=== PATIENT | female | born 1995 | race Hispanic/Latino ===

== ENCOUNTER 2017-05-22 11:58 | Inpatient (IN) | payer BC ==
[2017-05-22 13:48] LABS: Bilirubin Large (Negative); Blood, Urine Negative (Negative); Clarity CLOUDY (Clear); Glucose, Urine (Dipstick) Negative (Negative); Leukocyte Small (Negative); Nitrite Positive (Negative); Protein, Urine (Dipstick) Negative (Neg-Trace); Specific Gravity, Urine 1.017 (1.002-1.036); pH, Urine 5.5 (5.0-9.0)
[2017-05-22 13:50] LABS: #Lymphocytes 1.3 thou/uL (1.20-3.40); #Monocytes 0.7 thou/uL (0.11-0.59); #Neutrophils 9.6 thou/uL (1.40-6.50); %Basophils 0.3 % (0.0-1.0); %Eosinophils 0.3 % (0.0-10.0); %Lymphocytes 11.1 % (21.0-51.0); %Monocytes 5.6 % (0.0-10.0); %Neutrophils 82.7 % (42.0-75.0); Hemoglobin 12.7 g/dL (12.0-16.0); Mean Corpuscular HGB CONC 31.6 g/dL (32.0-36.0); Mean Corpuscular Hemoglobin 27.5 pg (27.0-31.0); Mean Platelet Volume 6.8 fL (7.4-10.4); Platelet Count 494 thou/uL (130-400); RBC Distribution Width 12.9 % (11.5-14.5); Red Blood Cell (RBC) Count 4.61 mill/uL (4.20-5.40); White Blood Cell (WBC) Count 11.6 thou/uL (4.8-10.8)
[2017-05-22 13:51] LABS: Bacteria/HPF Rare-Few HPF (None Seen); Hyaline Casts/LPF 0-3 HYALINE CAST LPF (0-3 Hyaline); Squamous Epithelial 0-3 HPF (0-3); WBC/HPF None Seen HPF (0-3)
[2017-05-22 13:56] LABS: Yeast-AUWi Flag 62.3 (0-25.0)
[2017-05-22 14:05] LABS: RBC/HPF 0-3 HPF (0-3); Renal Epithelial None Seen HPF (0-3); Transitional Epithelial NONE SEEN HPF (0-3); Yeast-All Forms None Seen HPF (None Seen)
[2017-05-22 14:12] LABS: ALT (SGPT) 1080 U/L (8-55); AST (SGOT) 1054 U/L (5-34); Albumin 4.3 g/dL (3.5-5.0); Alkaline Phosphatase 238 U/L (40-150); Anion Gap 13 mmol/L (10-20); BUN (Urea Nitrogen) 7 mg/dL (7.0-18.7); Bilirubin, Total 4.9 mg/dL (0.2-1.2); Calc. Creatinine Clearance 0 mL/min (70-130); Calcium 10.3 mg/dL (7.8-10.44); Carbon Dioxide 27 mmol/L (22-29); Chloride 101 mmol/L (98-107); Estimated GFR-MDRD Greater than 90; Globulin 4.4 g/dL (2.4-3.5); Glucose 122 mg/dL (70-105); Potassium 4.3 mmol/L (3.5-5.1); Protein, Total 8.7 g/dL (6.0-8.3); Sodium 137 mmol/L (136-145)
--- NOTE | 2017-05-22 14:57 | ULT ---
RIGHT UPPER QUADRANT ABDOMINAL ULTRASOUND: COMPARISON: None. HISTORY: Abdominal pain in the right upper quadrant. TECHNIQUE: Multiplanar, dai scale, and color Doppler images were obtained in a right upper quadrant abdominal u ltrasound. FINDINGS: The liver demonstrates increased echogenicity without focal lesions or intrahepatic ductal dilatation . The gallbladder contains shadowing stones and sludge without gallbladder wall thickening or perich olecystic fluid. The common bile duct is enlarged measuring 9 mm. The pancreas could not be visualized. The right kidney is normal in echogenicity without hydronephro sis or calculus and measures 11.6 cm in length. IMPRESSION: 1. Fatty liver. 2. Cholelithiasis. 3. Enlargement of the common bile duct. This could be a secondary sign of choledocholithiasis. POS: [facility]
[2017-05-22] MEDS ORDERED: Piperacillin/Tazobactam 3.375 GM in Sodium Chloride 0.9% 100 ML IVPB SCH (15:00)
[2017-05-22] MEDS ORDERED: Fentanyl 100 MCG/2 ML VIAL ONE (15:04)
[2017-05-22 15:06] LABS: Pregnancy Test - Urine (BHCG) Negative (Negative); Pregu Control Background? CLEAR/WHITE (CLR/WHITE); Pregu Control Bar Appear? YES (CONTROL BAR); Specific Gravity 1.018 (1.002-1.036)
[2017-05-22] MEDS ORDERED: Ondansetron HCl/PF 4 MG/2 ML Vial IVP PRN (15:07)
[2017-05-22] MEDS ORDERED: Fentanyl 100 MCG/2 ML VIAL SLOW IVP PRN (15:09)
[2017-05-22 15:43] LABS: INR-International Normal Ratio 1.1; Prothrombin Time 14.6 SEC (12.0-14.7)
[2017-05-22 16:34] VITALS: BMI 38.7
[2017-05-22] MEDS: Sodium Chloride 0.9% 1,000 ML IV SCH (16:53)
--- NOTE | 2017-05-22 16:53 | HP ---
PRIMARY CARE PROVIDER: LARISSA Rubalcava II, LAISHA Smith CHIEF COMPLAINT: Abdominal pain. HISTORY OF PRESENT ILLNESS: Ms. Sahu is a pleasant 23-year-old lady who was seen at [facility] on 05/22/2017. Approximately a week ago, she developed right upper quadrant pain. She reports that it lasted 1 day and resolved. About 3 days ago, she had a recurrence of the pain. She describes it as sharp, consta nt, 5/10, worse with lying down on her right side, no known living factors, accompanied by diaphoresi s, but not by fevers or chills, no history of chest pain or shortness of breath. She denies any naus ea, vomiting or diarrhea. She came to the emergency room because of ongoing abdominal pain. REVIEW OF SYSTEMS: The following complete review of systems was negative, unless otherwise mentioned in the HPI or below: Constitutional: Weight loss or gain, ability to conduct usual activities. Skin: Rash, itching. Eyes: Double vision, pain. ENT/Mouth: Nose bleeding, neck stiffness, pain, tenderness. Cardiovascular: Palpitations, dyspnea on exertion, orthopnea. Respiratory: Shortness of breath, wheezing, cough, hemoptysis, fever or night sweats. Gastrointestinal: Poor appetite, abdominal pain, heartburn, nausea, vomiting, constipation, or diarr hea. Genitourinary: Urgency, frequency, dysuria, nocturia. Musculoskeletal: Pain, swelling. Neurologic/Psychiatric: Anxiety, depression. Allergy/Immunologic: Skin rash, bleeding tendency. PAST MEDICAL HISTORY: None. PAST SURGICAL HISTORY: None. PSYCHIATRIC HISTORY: Depression. FAMILY HISTORY: Cholelithiasis in her mother. SOCIAL HISTORY: No history of tobacco use, alcohol use or recreational drug use. ALLERGIES: No known drug allergies. MEDICATION: Fluoxetine 60 mg daily. PHYSICAL EXAMINATION: GENERAL: On examination, Ms. Sahu is awake and alert, not in acute distress. VITAL SIGNS: Blood pressure is 136/91, pulse is 69, she is breathing at rate of 16, and saturating 1 00% on room air. She is afebrile. EYES: Patient has scleral icterus. No conjunctival pallor. ENT: Moist mucosal membranes, no oropharyngeal erythema or exudates. NECK: Supple, nontender, normal range of movement. Trachea is midline. RESPIRATORY: Accessory muscles of breathing are not active. Chest wall movements are symmetric bila terally. LUNGS: Clear to auscultation without wheeze, rhonchi or crepitations. CARDIOVASCULAR: S1 and S2 are heard, regular. LUNGS: Peripheral pulses palpable. No carotid bruit, no pericardial rub. ABDOMEN: Right upper quadrant tenderness present, no guarding or rigidity. Bowel sounds are heard, Cunningham sign is negative. NEUROLOGIC: Cranial nerves II-XII intact. Deep tendon reflexes are 2+. MUSCULOSKELETAL: Power is 5/5 in all 4 extremities. SKIN: No rashes or subcutaneous nodules. LYMPHATIC: No cervical lymphadenopathy. PSYCHIATRIC: Normal mood and normal affect. The patient is oriented to person, place, and time. LABORATORY DATA AND IMAGING DATA: Ms. Sahu's labs and investigations were reviewed. Laboratory in vestigations showed leukocytosis with 11,600 white cells, of which 82.7% are neutrophils, elevated pl atelet count of 494,000, normal hemoglobin, INR 1.1, normal lipase, normal electrolytes, normal creat inine, elevated total bilirubin of 4.9, elevated AST of 1054, elevated ALT of 1080 and elevated alkal ine phosphatase of 238. Urinalysis is positive for trace ketones, nitrite, large amount of bilirubin and small amount of leukocyte esterase. Urine test is negative. Abdominal ultrasound yissel wed fatty liver, cholelithiasis and enlargement of the common bile duct. ASSESSMENT AND PLAN: Ms. Sahu is a pleasant 21-year-old lady who was seen at [facility] on 05/22/2017. Her problem list includes: 1. Abdominal pain: Most likely secondary to choledocholithiasis. She will be admitted to the [facility] for further management, including pain medications. 2. Choledocholithiasis: Gastroenterology Service and General Surgery Service are being consulted. We will cover her with broad spectrum antibiotics for now. We will keep her n.p.o. after midnight an d recheck her liver profile in the morning. 3. Urinary tract infection. We will treat her with antibiotics, await urine cultures. Many thanks for allowing me to participate in your patient's care. Please feel free to contact me wi th any questions or concerns. LEVEL OF RISK: Moderate. LEVEL OF COMPLEXITY: Moderate.
[2017-05-22] MEDS ORDERED: Ketorolac Tromethamine 30 MG/ML VIAL IVP PRN (18:38)
[2017-05-22] MEDS ORDERED: Scopolamine 1.5 mg/72 hour Patch TOP SCH (18:45)
[2017-05-22] MEDS: Acetaminophen 1,000 MG in Premix Bag 1 BAG IVPB SCH (19:51)
--- NOTE | 2017-05-22 20:13 | CON ---
DATE OF CONSULTATION: 05/22/2017 REASON FOR CONSULTATION: Possible choledocholithiasis. HISTORY OF PRESENT ILLNESS: Ms. Sahu is a 21-year-old female who came to emergency room for right upper abdominal pain, which radiated to the epigastrium and chest region. She states this began last night, was quite intense, coming and going, and finally got so intense today she decided to come to the emergency room. Apparently, this happened once last summer when [facility] was told she probably had gallstones. It happened apparently on or few days prior and went away, and then started again yesterday. She notes that she has had some chills and felt swea ts, but has had no fever. Presently, she feels well. She did receive a little bit of pain medicatio n here in the emergency room. She had 50 mg of fentanyl about an hour ago. She notes that she has h ad no vomiting. She feels much better presently. When asked about dark urine, she states she noted this here apparently when she gave her urine sample. Temperature is 98.5, blood pressure 135/95, pul se was 75, respirations 18. Here in the emergency room, she had labs showing white count 11.6, hemog lobin 12.7, platelet count 494. INR was 1.1. Lipase was 24. AST and ALT were 1054 and 1080, alkali ne phosphatase of 238, bilirubin 4.9. Basic metabolic profile was normal. Urinalysis was positive f or nitrites, negative for white blood cells. Ultrasound showed stones in the gallbladder with no per icholecystic fluid or thickened gallbladder. Bile duct was 9 mm. There was fatty liver. PAST MEDICAL HISTORY: She is taking fluoxetine for depression and sees a psychiatrist, has been hany g well with that. PAST SURGICAL HISTORY: Negative. ALLERGIES: None known. SOCIAL HISTORY: Negative for alcohol, drugs, or tobacco. FAMILY HISTORY: Positive for gallstones in her mother. PHYSICAL EXAMINATION: VITAL SIGNS: As per HPI. GENERAL: She is well nourished, well developed. She is alert. She is smiling. She is in no distre ss. HEENT: Oropharynx without lesions. Conjunctivae and sclerae appear clear. I do not appreciate any icterus, however, when in room without any outside light. NECK: Supple. LUNGS: Clear. ABDOMEN: Soft and nontender without any palpable hepatosplenomegaly. There is no rebound or guardin g. There is no right upper quadrant tenderness. There is no palpable hepatosplenomegaly. EXTREMITIES: No clubbing, cyanosis, or edema. NEUROLOGIC: Mental status: She is alert and oriented to person, place, and time. She is appropriat e. LABORATORY DATA: As per HPI. ASSESSMENT: Biliary colic intermittently, at least 3 times since the summer, now with a worst episod e with 9-mm bile duct and elevated liver enzymes, likely she has had some choledocholithiasis. She i s feeling much better now. She may have already passed the stone. She shows no signs of cholangitis with no fever, no tachycardia, no right upper quadrant tenderness at this time. There were no signs of overt severe cholecystitis. She does have mildly elevated white count. RECOMMENDATIONS: 1. IV fluids at 150 mL an hour. 2. Repeat labs in the morning. 3. I did start her empiric antibiotics due to the possibility of choledocholithiasis. 4. Plan for laparoscopic cholecystectomy tomorrow morning with General Surgery. I have already talk ed with Dr. Israel. If her LFTs remain elevated, she will need an ERCP. If her LFTs dropped, she ca n have a laparoscopic cholecystectomy with IOC. If she shows any signs of developing fever, increasi ng pain, tachycardia, or any concerning features for possible cholangitis or pancreatitis, I would re peat her labs immediately today and then proceed to call to ERCP. The risks, benefits, and possible complications of endoscopy including perforation, bleeding, reactions to medication, and aspiration w ere all explained to the patient and her family and they understand these. The reason for not procee ding with ERCP right this second is due to the fact that she may have already passed a stone and that there are risks of ERCP including pancreatitis. They understand the rationale behind this decision and we will continue to monitor. I will be on-call and will be available to see her if her symptoms worsened.
[2017-05-22] MEDS: Piperacillin/Tazobactam 4.5 GM in Sodium Chloride 0.9% 100 ML IVPB SCH (21:25)
--- NOTE | 2017-05-22 22:46 | HP ---
HISTORY OF PRESENT ILLNESS: A 21-year-old female, [employer], has had epigastric right upper quadrant pain intermittently since last year. She had experienced it last summer, resolved, an d then recurred about three weeks ago and recurred last . It has been present since that zeb chau. She presents to the emergency room, has a 9-mm bile duct and gallstones. Her sodium is 137. BUN and creatinine are normal. Glucose 122, bilirubin 4.9, alkaline phosphatase 238. AST and ALT are e levated. She is morbidly obese, 5 feet 6 inches, 240 pounds, BMI 38. She takes fluoxetine at home. The patient was seen in the emergency room. Dr. Morgan saw her. He admitted her to the [facility], who then called Gastroenterology, Dr. Harry; then myself. The patient was admitted to [facility] service on IV antibiotics. The patient is not having much pain currently. ALLERGIES: None. TOBACCO: None. ALCOHOL: Rarely. MEDICATIONS: None. PAST MEDICAL HISTORY: Noncontributory. PAST SURGICAL HISTORY: Noncontributory. REVIEW OF SYSTEMS: Noncontributory. PHYSICAL EXAMINATION: VITAL SIGNS: 5 feet, 6 inches, 240 pounds, BMI 38. Temperature 98.4, pulse 66, blood pressure 146/8 9. LUNGS: Clear to auscultation. CARDIAC: Regular rate and rhythm without murmur or gallop. ABDOMEN: Soft. Mild tenderness in right upper quadrant. EXTREMITIES: Unremarkable. Morbidly obese. ASSESSMENT AND PLAN: 1. Cholecystitis, cholelithiasis, possible choledocholithiasis. The patient has had pain since last . She could have acute cholecystitis that is causing her liver function test elevation, but in the face of a dilated bile duct, one would have to suspect choledocholithiasis. Since she is not having much pain at this time, plan would be to recheck her liver function test tomorrow. I have di scussed with Dr. Harry. If her liver function tests improved, she could undergo laparoscopic cholec ystectomy and cholangiogram and then based on results of cholangiogram, she may need ERCP. If her li dilan function tests are not improved, then ERCP, sphincterotomy, and laparoscopic cholecystectomy unde r the same anesthesia could be performed. Risk of operation including infection, bleeding, visceral or biliary injury, and open procedure were discussed with the patient and questions were answered. 2. Obesity. 3. Depression.
[2017-05-23] MEDS: Sodium Chloride 0.9% 1,000 ML IV SCH ×2 (00:15→11:17)
[2017-05-23] MEDS: Acetaminophen 1,000 MG in Premix Bag 1 BAG IVPB SCH ×2 (02:15→07:26)
[2017-05-23] MEDS: Piperacillin/Tazobactam 4.5 GM in Sodium Chloride 0.9% 100 ML IVPB SCH (05:23)
[2017-05-23 05:41] LABS: ALT (SGPT) 796 U/L (8-55); AST (SGOT) 612 U/L (5-34); Albumin 3.5 g/dL (3.5-5.0); Alkaline Phosphatase 207 U/L (40-150); Anion Gap 10 mmol/L (10-20); BUN (Urea Nitrogen) 6 mg/dL (7.0-18.7); Bilirubin, Total 4.5 mg/dL (0.2-1.2); Calc. Creatinine Clearance 253 mL/min (70-130); Carbon Dioxide 26 mmol/L (22-29); Chloride 104 mmol/L (98-107); Estimated GFR-MDRD Greater than 90; Globulin 3.6 g/dL (2.4-3.5); Glucose 93 mg/dL (70-105); Lipase 18 U/L (8-78); Potassium 3.1 mmol/L (3.5-5.1); Protein, Total 7.1 g/dL (6.0-8.3); Sodium 137 mmol/L (136-145)
[2017-05-23] MEDS ORDERED: Bupivacaine 0.25% HCL 30 ML VIAL ONE (07:49)
[2017-05-23] MEDS ORDERED: Lidocaine 2% w/Epinephrine 1:200K 20 ML VIAL ONE (07:49)
[2017-05-23] MEDS ORDERED: Iothalamate Meglumine 60% 50 ML VIAL FS ONE (07:56)
[2017-05-23] MEDS ORDERED: Indomethacin 50 MG SUPP ONE (08:59)
[2017-05-23] MEDS ORDERED: Midazolam HCl 2 mg/2 ml Vial ONE (09:01)
[2017-05-23] MEDS ORDERED: Ketorolac Tromethamine 30 MG/ML VIAL ONE (09:01)
[2017-05-23] MEDS ORDERED: Fentanyl 100 MCG/2 ML VIAL ONE (09:07)
--- NOTE | 2017-05-23 09:53 | RAD ---
ERCP: HISTORY: Cholelithiasis. Abdominal pain. FINDINGS: Intraoperative fluoroscopy was provided for ERCP as performed by Dr. Harry. Spot fluoroscopic image s show endoscopic catheter overlying the duodenum. There is contrast opacification of a common duct that is upper limits of normal in caliber. One image shows a filling defect correlating with the cat heter balloon. No filling defects are otherwise demonstrated. POS: [facility]
[2017-05-23] MEDS ORDERED: traMADol HCl 50 MG TAB PO PRN ×2 (11:07)
[2017-05-23] MEDS ORDERED: Acetaminophen 500 MG TAB PO PRN (11:07)
[2017-05-23] MEDS ORDERED: Ibuprofen 600 MG TAB PO PRN (11:07)
--- NOTE | 2017-05-23 14:07 | OP ---
PREPROCEDURE DIAGNOSES: 1. Suspected choledocholithiasis. 2. Gallstones. 3. Presentation with abdominal pain consistent with biliary colic dating back 6 months of elevated l iver function tests, which are persisted to be elevated this morning. POSTPROCEDURE DIAGNOSES: Choledocholithiasis, removal of stone after sphincterotomy with 12 mm ballo on. PLAN: The patient is going to the OR for cholecystectomy, conveyed to Dr. Israel, an IOC will not be necessary. ANESTHESIA: General endotracheal anesthesia. The patient is already on Zosyn. She did not receive extra antibiotics and she received Indocin suppositories for post-ERCP pancreatitis prophylaxis. PROCEDURE IN DETAIL: After the patient was informed of the risks, benefits, possible complications o f endoscopy and ERCP and specifically including perforation, bleeding, reaction to medication, aspira tion and pancreatitis, informed consent was obtained. The patient was brought to the endoscopy suite . She was intubated and placed in the prone position. The Indocin suppositories were placed in the rectum. The bite block was placed in incisural orifice. The endoscope was advanced through the esop hagus, stomach and second and third portion of duodenum, and the ampulla was brought into view. Lorne ulation was obtained with the assistance of a guidewire. Injection revealed no obvious filling defec ts. The lower common bile duct did not feel well. A sphincterotomy was performed and sludge and roseanne ris drained out of the distal common bile duct. A 12 mm balloon was advanced up into the common hepa tic duct. An occlusion cholangiogram was performed revealing normal intrahepatic ducts. The duct wa s then swept and 1 yellow lobulated stone about 9 mm in size passed through the ampulla. Occlusion c holangiogram after this was normal. There was normal drainage of the bile, both endoscopically and r adiographically. The scope was removed. The patient tolerated the procedure well and then was remov ed from the fluoroscopy table and brought to the operating room for Dr. Israel to perform the second part of the procedure, which I will dictate which is the cholecystectomy. Findings were discussed with the patient's family.
[2017-05-23] MEDS ORDERED: Lidocaine 1% PF 5 ML VIAL ONE (16:06)
[2017-05-23] MEDS ORDERED: Glycopyrrolate 0.2 MG/ML 5 ML SYRINGE ONE (16:06)
[2017-05-23] MEDS ORDERED: Ondansetron HCl/PF 4 MG/2 ML Vial ONE (16:06)
[2017-05-23] MEDS ORDERED: Dexamethasone 20 MG/5 ML VIAL ONE (16:06)
[2017-05-23] MEDS ORDERED: Propofol 200 MG/20 ML VIAL ONE ×2 (16:06)
[2017-05-23 16:14] VITALS: BP 124/70; TEMP 98.4
--- NOTE | 2017-05-23 16:32 | OP ---
DATE: 05/23/2017 PREOPERATIVE DIAGNOSES: Acute cholecystitis, cholelithiasis, choledocholithiasis. POSTOPERATIVE DIAGNOSES: Acute cholecystitis, cholelithiasis, choledocholithiasis. PROCEDURE: Laparoscopic video cholecystectomy (Dr. Harry performed ERCP, sphincterotomy just before this procedure under the same anesthetic). FINDINGS: Acute cholecystitis, thickened gallbladder wall and inflammatory changes. SURGEON: Dr. Keegan Israel ANESTHESIA: General. Local 0.25% Marcaine with epinephrine, 30 mL. DESCRIPTION OF PROCEDURE: Patient was taken to the operating room where under general anesthesia, ab callaway was prepared with chloraprep, draped in routine fashion. Dr. Harry had performed ERCP, sphinc terotomy, stone extraction. Infraumbilical incision made and pneumoperitoneum to 15 mmHg obtained wi th the Veress needle, replacing it with a 5 port. Video laparoscope inserted. Right subxiphoid inci thi made and 11 port placed. Right subcostal incision made mid clavicular anterior axillary lines a nd 5 ports placed. Liver appeared to be normal. Gallbladder was acutely inflamed, thickened wall, i nflammatory adhesions, dense omentum to the gallbladder body. These were taken down with blunt and s harp dissection using cautery for hemostasis. Critical view obtained with dissection of cystic arter y and duct. Pericholecystic dissection, two-thirds cystic plate performed to achieve this. Cystic a rtery and duct doubly clipped proximally, divided, and gallbladder dissected free from the liver bed obtaining good hemostasis prior to division of final peritoneal attachments. Gallbladder removed thr ough the subxiphoid 11 port site. A GraNee needle 0 Vicryl [id number]-rdpeo suture placed to close th is enlarged subxiphoid fascial defect. Irrigant and pneumoperitoneum evacuated after ensuring good h emostasis. All instruments removed and all skin incisions approximated with interrupted subdermal 4- 0 Monocryl and DermaGlue applied.
--- NOTE | 2017-05-23 17:03 | PRG ---
DATE OF SERVICE: 05/23/2017 SUBJECTIVE: Ms. Sahu is doing well today. I am visiting her at 3:15 p.m. She is tolerating liqui ds. She has not had any abdominal pain. She has an incisional soreness. Her abdomen is soft and no ntender. The patient is doing well. Liver function test will be checked as an outpatient. She will see me as an outpatient in 2 weeks and call sooner if necessary. She sent home on Tylenol 1000 mg p .o. q.i.d. p.r.n. pain, Motrin 600 mg p.o. q.i.d. p.r.n. pain and Ultram to fill if needed 20 tabs 50 mg 1-2 p.o. q.i.d. p.r.n. pain. Diet and activity as tolerated. No activity, lifting or dietary re strictions.
--- NOTE | 2017-05-23 20:46 | DIS ---
DATE OF ADMISSION: 05/22/2017 DATE OF DISCHARGE: 05/23/2017 PRIMARY CARE PROVIDER: Dr. Bonifacio Banerjee. He is a PA in [place], [place]. DISCHARGE DIAGNOSES: 1. Choledocholithiasis. 2. Cholelithiasis. CONDITION OF PATIENT AT THE TIME OF DISCHARGE: Stable. I assessed Mr. Sahu after surgery. She de nies any abdominal pain. Vital signs are stable. S1 and S2 are heard, regular. Lungs are clear to auscultation bilaterally. Abdomen is soft, nontender, bowel sounds are heard. DISCHARGE MEDICATIONS: Fluoxetine 60 mg daily as well as levofloxacin and tramadol as prescribed by surgical service. HOSPITAL COURSE: Ms. Sahu is a pleasant 21-year-old lady who was admitted to [facility] for choledocholithiasis on 05/22/2017. She was seen by Gastroenterology and General [facility] services. Her liver function tests improved on 05/23/2017. She underwent ERCP with removal of stone after sphincterotomy with 12 mm balloon. Subsequently, she underwent laparoscopic cholecystect shahram. She improved clinically. She is tolerating diet and is being discharged home. Urine cultures are pending at the time of discharge. Her urinalysis was suggestive of urinary tract infection. She is advised to follow up with her primary care provider for final urine culture result s. She has been prescribed levofloxacin by surgical service. Many thanks for allowing me to participate in your patient's care. Please feel free to contact me wi th any questions or concerns. DISCHARGE DESTINATION: Home. TOTAL AMOUNT OF TIME SPENT COORDINATING THIS DISCHARGE: 22 minutes.
[2017-05-24] MEDS ORDERED: Polyethylene Glycol 3350 17 GM Packet PO SCH (09:00)
== END 2017-05-23 16:58 | disposition home or self-care (01) | DRG 418 ==
LOC: ERS 11:58 → T4-B 16:30
PROVIDERS: ADMIT Internal Medicine; ATTEND Internal Medicine
PROC: 0FT44ZZ Resection of Gallbladder, Percutaneous Endoscopic Approach (ICD-10-PCS; principal; 2017-05-23)
PROC: 0FC98ZZ Extirpation of Matter from Common Bile Duct, Via Natural or Artificial Opening Endoscopic (ICD-10-PCS; 2017-05-23)
DX: K80.42 Calculus of bile duct with acute cholecystitis without obstruction (principal); N39.0 Urinary tract infection, site not specified; E66.01 Morbid (severe) obesity due to excess calories; Z68.38 Body mass index [BMI] 38.0-38.9, adult; F32.9 Major depressive disorder, single episode, unspecified
CPT/HCPCS: 36415; 74330; 76705; 80053; 81003; 81015; 81025; 83690; 85025; 85610; 87086; 96361; 96365; 96375; J0131; J1100; J1610; J1885; J2001; J2250; J2405; J2543; J2704; J3010; J7050; Q9961; S0020